=== PATIENT | female | born 1975 | race Caucasian/White ===

== ENCOUNTER 2018-10-15 10:58 | Day surgery (SDC) | payer OTHER ==
[~2018-10-15 10:58] MED LIST: CEFAZOLIN 2 GM/50 ML (PMX) 50 ML IVPB
[2018-10-15 11:58] LABS: ADD MAN DIFF? NO
[2018-10-15 12:11] LABS: BASOPHILS % 0.5 % (0.0-2.0); EOSINOPHILS % 0.3 % (0.0-7.0); HEMATOCRIT 38.7 % (37.0-47.0); HEMOGLOBIN 12.9 g/dl (12.0-16.0); LYMPHOCYTES # 0.8 10^3/ul (0.8-2.9); MEAN CORPUSCULAR HEMOGLOBIN 29.9 pg (29.0-33.0); MEAN CORPUSCULAR HGB CONC 33.3 g/dl (32.0-37.0); MEAN CORPUSCULAR VOLUME 89.8 fl (82.0-101.0); MEAN PLATELET VOLUME 10.8 fl (7.4-10.4); MONOCYTE # 0.5 10^3/ul (0.3-0.9); MONOCYTES % 12.2 % (0.0-11.0); NEUTROPHIL # 2.5 10^3/ul (1.6-7.5); NEUTROPHILS % 65.7 % (39.0-77.0); PLATELET COUNT 198 10^3/UL (140-415); RED BLOOD COUNT 4.31 10^6/ul (4.20-5.40); RED CELL DISTRIBUTION WIDTH 13.6 % (11.5-14.5)
[2018-10-15 12:11] LABS: WHITE BLOOD COUNT 3.8 10^3/ul (4.8-10.8)
[2018-10-15 12:19] LABS: ALANINE AMINOTRANSFERASE 26 IU/L (13-69); ALBUMIN 4.4 g/dl (3.3-4.9); ALBUMIN/GLOBULIN RATIO 1.33; ALKALINE PHOSPHATASE 57 IU/L (42-121); ANION GAP 10 (5-13); ASPARTATE AMINO TRANSFERASE 30 IU/L (15-46); BILIRUBIN,INDIRECT 0.7 mg/dl (0-1.1); BILIRUBIN,TOTAL 0.7 mg/dl (0.2-1.3); BLOOD UREA NITROGEN 12 mg/dl (7-20); CALCIUM 9.2 mg/dl (8.4-10.2); CARBON DIOXIDE 24 mmol/L (21-31); CHLORIDE 108 mmol/L (97-110); CREATININE 0.63 mg/dl (0.44-1.00); Estimated GFR > 60 mL/min (>60); GLUCOSE 81 mg/dl (70-220); POTASSIUM 4.1 mmol/L (3.5-5.1); SODIUM 142 mmol/L (135-144); TOTAL PROTEIN 7.7 g/dl (6.1-8.1)
[2018-10-15 12:44] LABS: INR 1.07; PT RATIO 1.1
[2018-10-15 12:54] LABS: PARTIAL THROMBOPLASTIN TIME 38.8 Sec (23.0-35.0)
[2018-10-15] MEDS ORDERED: HYDROmorphONE 1 MG/5 ML IV SYRINGE IV (15:30)
[2018-10-15] MEDS ORDERED: LABETALOL HCL 20MG INJ IV (15:30)
[2018-10-15] MEDS ORDERED: DIPHENHYDRAMINE 50 MG INJ IV (15:30)
[2018-10-15] MEDS ORDERED: EPHEDrine SULFATE 50 MG/5 ML SYG IV (15:30)
[2018-10-15] MEDS ORDERED: ALBUTEROL 0.083% (NEB) 2.5 MG/3 ML AMP HHN (15:30)
[2018-10-15] MEDS ORDERED: FENTAnyl 50 MCG/ML VIAL IV ×3 (15:30)
[2018-10-15] MEDS ORDERED: OXYCODONE/ACETAMINOPHEN (5/325) TAB PO (15:30)
[2018-10-15] MEDS ORDERED: MIDAZOLAM 1 MG/ML 2 ML INJ IV (15:30)
[2018-10-15] MEDS ORDERED: hydrALAzine 20 MG INJ IV (15:30)
[2018-10-15] MEDS ORDERED: MEPERIDINE 25 MG INJ IV (15:30)
[2018-10-15] MEDS ORDERED: IPRATROPIUM (NEB) 0.5 MG/2.5 ML AMP HHN (15:30)
[2018-10-15] MEDS ORDERED: TRIMETHOBENZAMIDE 100 MG/ML VIAL IM (15:30)
[2018-10-15] MEDS ORDERED: MIDAZOLAM 1 MG/ML 2 ML INJ (15:31)
[2018-10-15] MEDS ORDERED: NEOSTIGMINE 3 MG/3 ML SYRINGE (15:31)
[2018-10-15] MEDS ORDERED: GLYCOPYRROLATE 0.4 MG INJ (15:31)
[2018-10-15] MEDS ORDERED: ROCURONIUM 50 MG INJ (15:31)
[2018-10-15] MEDS ORDERED: CEFAZOLIN 1 GM INJ (15:31)
[2018-10-15] MEDS ORDERED: PROPOFOL 20 ML (15:31)
[2018-10-15] MEDS ORDERED: ONDANSETRON 4 MG INJ (15:32)
[2018-10-15] MEDS ORDERED: FENTAnyl 50 MCG/ML VIAL (15:32)
[2018-10-15] MEDS ORDERED: DEXAMETHASONE 4 MG/ML 1 ML INJ (15:32)
[2018-10-15] MEDS ORDERED: ROPIVACAINE 0.5 % 30 ML VIAL (15:53)
[2018-10-15] MEDS: BUPIVACAINE 0.25% (MPF) 30 ML INJ (16:13)
[2018-10-15] MEDS ORDERED: KETOROLAC 30 MG INJ (16:17)
[2018-10-15] MEDS ORDERED: HYDROCODONE/APAP (5/325) TAB PO (16:30)
[2018-10-15] MEDS: SOD CHLORIDE 0.9% 1,000 ML IV (16:47)
[2018-10-15] MEDS: HYDROmorphONE 1 MG/5 ML IV SYRINGE IV ×2 (16:49→16:55)
[2018-10-15] MEDS: ONDANSETRON 4 MG INJ IV (16:49)
[2018-10-15] MEDS: OXYCODONE/ACETAMINOPHEN (5/325) TAB PO (17:02)
== END 2018-10-15 18:07 | disposition home or self-care (01) ==
LOC: SDS 10:58
DX: K80.20 Calculus of gallbladder without cholecystitis without obstruction (principal)
CPT/HCPCS: 47562; 80053; 85025; 85610; 85730; 88304

== ENCOUNTER 2018-10-24 21:01 | Emergency (ER) | payer OTHER ==
[2018-10-24 22:34] LABS: WHITE BLOOD COUNT 2.7 10^3/ul (4.8-10.8)
[2018-10-24 22:34] LABS: ABNORMAL IP MESSAGE 1; HEMATOCRIT 30.8 % (37.0-47.0); HEMOGLOBIN 10.3 g/dl (12.0-16.0); MEAN CORPUSCULAR HEMOGLOBIN 30.2 pg (29.0-33.0); MEAN CORPUSCULAR HGB CONC 33.4 g/dl (32.0-37.0); MEAN CORPUSCULAR VOLUME 90.3 fl (82.0-101.0); MEAN PLATELET VOLUME 9.8 fl (7.4-10.4); PLATELET COUNT 193 10^3/UL (140-415); RED BLOOD COUNT 3.41 10^6/ul (4.20-5.40); RED CELL DISTRIBUTION WIDTH 13.2 % (11.5-14.5)
[2018-10-24 22:37] LABS: ADD MAN DIFF? YES; POSITIVE DIFF @See below
[2018-10-24 22:54] LABS: ANION GAP 9 (5-13); BLOOD UREA NITROGEN 13 mg/dl (7-20); CALCIUM 8.4 mg/dl (8.4-10.2); CARBON DIOXIDE 26 mmol/L (21-31); CHLORIDE 104 mmol/L (97-110); CREATININE 0.64 mg/dl (0.44-1.00); Estimated GFR > 60 mL/min (>60); GLUCOSE 97 mg/dl (70-220); POTASSIUM 3.9 mmol/L (3.5-5.1); SODIUM 139 mmol/L (135-144)
[2018-10-24 23:06] LABS: TROPONIN-I < 0.012 ng/ml (0.000-0.120)
[2018-10-24 23:32] LABS: ANISOCYTOSIS 1+ (0-0); GIANT THROMBO% (M) 2 % (0-0); LYMPHOCYTES #M 0.5 10^3/ul (0.8-2.9); LYMPHOCYTES % (M) 21 % (15-51); METAMYELOCYTES %M 1 % (0-0); MONOCYTE #M 0.4 10^3/ul (0.3-0.9); MONOCYTES % (M) 15 % (0-11); MYELOCYTES % (M) 2 % (0-0); PLATELET ESTIMATE NORMAL; POLYCHROMASIA 2+ (0-0); SEGMENTED NEUTROPHILS (M) % 61 % (39-77)
[2018-10-24 23:37] LABS: D-DIMER 849.91 ng/ml (<460)
[2018-10-25] MEDS: ONDANSETRON 4 MG INJ IV (01:18)
[2018-10-25] MEDS: morphine 2 MG INJ IV (01:19)
[2018-10-25] MEDS: SOD CHLORIDE 0.9% 1,000 ML IV (01:19)
[2018-10-25] MEDS: SOD CHLORIDE 0.9% 100 ML (01:49)
[2018-10-25] MEDS: IOHEXOL 100 ML (01:50)
== END 2018-10-25 02:30 | disposition home or self-care (01) ==
LOC: E/R 10-25 02:30
DX: K59.00 Constipation, unspecified (principal); D64.9 Anemia, unspecified; D72.819 Decreased white blood cell count, unspecified
CPT/HCPCS: 36415; 71045; 71275; 80048; 81025; 84484; 85025; 85378; 93005; 96374; 96375; 99285-25